=== PATIENT | female | born 1940 | race Caucasian/White ===

== ENCOUNTER 2022-03-16 06:08 | Day surgery (SDC) | payer MEDICARE, SELFPAY ==
[2022-03-16] VITALS (23 sets, daily range): BP systolic 92–138; BP diastolic 53–79; PULSE 59–84; RESP 14–24; TEMP 35.8–37.1; O2SAT 91–100; BMI 23.8
[2022-03-16] MEDS: ACETAMINOPHEN 500 MG TABLET 1000 MG PO ×3 (06:38→21:39)
[2022-03-16] MEDS: OXYCODONE (CR) 10 MG TAB.ER.12H PO (06:38)
[2022-03-16] MEDS: CELECOXIB 200 MG CAPSULE PO ×2 (06:38→21:08)
[2022-03-16] MEDS: LACTATED RINGERS 1000 ML 1,000 ML 100 ML IV ×2 (06:55→09:38)
[2022-03-16] MEDS: SODIUM CHLORIDE 0.9 % (FLUSH) 10 ML SYRINGE IVF (06:56)
--- NOTE | 2022-03-16 07:02 | SUR.PREOP ---
pt has a small open sore on left lateral side of leg by ankle. Oozing. Covered with dressing.
[2022-03-16] MEDS: MIDAZOLAM HCL 1 MG/ML inj IVP (07:16)
[2022-03-16] MEDS: fentaNYL 100 MCG/2 ML inj IVP (07:16)
[2022-03-16] MEDS: CEFAZOLIN 1 GM inj IVP (07:45)
[2022-03-16] MEDS: TRANEXAMIC ACID 100 MG/ML INJ 1000 MG IV (07:50)
--- NOTE | 2022-03-16 08:04 | W.PM.NB ---
Nerve Block Nerve Block Time Seen by Provider: 07:18 Date Seen: 03/16/22 Type of block requested by surgeon for post-operative analgesia: adductor canal Side: right Time out performed: Yes Verification of patient name: Yes Verification of date of : Yes Site marking: site marked Name of person performing procedure: Andrea Continuous monitoring Was continuous monitoring of O2 sat, B/P, quality assurance monitor final, recorded every 15 minutes?: Yes Procedure Checklist: sterile prep, needles and gloves Ultrasound guided. Images saved: Yes Medications given in 5ml increments after negative aspiration: Ropivicaine %: 0.5 mL: 20 Needle gauge: 20 Decadron (mg): 10 Precedex (mcg): 25 Patient tolerated procedure well: Yes Additional comments: Needle noted adjacent to nerve Block Charges Block Charge (with Pro Fee): Femoral Nerve Use of Ultrasound Machine for Block: Yes- US Guidance/pain block
--- NOTE | 2022-03-16 08:05 | W.PM.NB ---
Nerve Block Nerve Block Time Seen by Provider: 07:18 Date Seen: 03/16/22 Type of block requested by surgeon for post-operative analgesia: geniculars Side: right Time out performed: Yes Verification of patient name: Yes Verification of date of : Yes Site marking: site marked Name of person performing procedure: Andrea Continuous monitoring Was continuous monitoring of O2 sat, B/P, dye range tender, recorded every 15 minutes?: Yes Procedure Checklist: sterile prep, needles and gloves Medications given in 5ml increments after negative aspiration: Ropivicaine %: 0.5 mL: 9 Needle gauge: 25 Patient tolerated procedure well: Yes Block Charges Block Charge (with Pro Fee): Genicular Nerve Block Use of Ultrasound Machine for Block: No
--- NOTE | 2022-03-16 09:49 | W.ANESCHARGE ---
Anesthesia Charges Start Date/Time Anesthesia Start Date: 03/16/22 Anesthesia Start Time: 07:39 Stop Date/Time Anesthesia Stop Date: 03/16/22 Anesthesia Stop Time: 09:51 Summary Emergency: No Extremes of Age: Over 69-CPT 67437
--- NOTE | 2022-03-16 09:59 | CRLHL7_ITS ---
For Patients: As a result of the Cures Act, medical imaging exams and procedure reports are released immediately into your electronic medical record. You may view this report before your referring provider. If you have questions, please contact your health care provider. Indication: Post op right TKA Technique: Two views right knee Findings/Impression: Hardware from a right total knee arthroplasty is in satisfactory position. Bone alignment is normal. No sign of acute fracture. Postop changes are within normal limits. Dictated by Mukul Bose MD @ 03/16/2022 11:08:22 AM (Electronically Signed)
--- NOTE | 2022-03-16 10:08 | P.ORPRC_ITS ---
Procedure Note Date of procedure: 03/16/22 Procedure: SURGEON: Elliot Chairez MD MEDICAL ASSISTANT SECRETARY: Arlene Aguayo PA-C PREOPERATIVE DIAGNOSIS: Right knee osteoarthritis POSTOPERATIVE DIAGNOSIS: Right knee osteoarthritis NAME OF OPERATION: Right total knee arthroplasty ANESTHESIA: Spinal ESTIMATED BLOOD LOSS: 0 mL COMPLICATIONS: None SPECIMENS: None DRAINS: None PREOPERATIVE ANTIBIOTICS: Ancef 1 g IMPLANTS: 1. J&J Attune #6 posterior stabilized femur 2. # 5 fixed-bearing tibia 3. # 5 posterior stabilized, 7 mm fixed-bearing polyethylene 4. 38 patella INDICATIONS: The patient is a 81-year-old with a longstanding history of severe, unrelenting right knee pain secondary to end-stage (grade IV) right knee osteoarthritis. Despite appropriate nonoperative management, including activity modification, anti-inflammatories, [id number] pain medication, bracing, physical therapy, and injections they continue to have pain and disability. Operative intervention was offered. The risks, benefits and expected outcomes were discussed in detail. These included but were not limited to: Infection, bleeding, injury to blood vessel or nerve, venous thromboembolism. All questions were answered to their satisfaction. Use of an assistant public defender was necessary throughout the case for patient positioning and safety, soft tissue retraction, and closure. PROCEDURE: Spinal anesthesia was administered. The patient was placed supine on the operating table. The assistant public defender made sure the patient was positioned appropriately. The lower extremity was prepped and draped in the usual sterile fashion. The limb was exsanguinated with the Yash bandage. The pneumatic tourniquet was inflated to 300 mmHg. A standard anterior incision was made with the knee in flexion. Subcutaneous dissection was sharply taken through fascial layer #1. Full-thickness medial and lateral flaps were elevated. The assistant public defender retracted the soft tissues and protected them throughout the case. A standard medial parapatellar approach was made. The patella was everted. The infrapatellar fat pad was preserved. The menisci and cruciate ligaments were sharply d?brided. Marginal osteophytes were d?brided with the rongeur. The drill was used to penetrate the femoral canal. The canal was aspirated and irrigated with pulse lavage. The intramedullary femoral guide was placed for a 5-degree valgus cut, removing 10 mm off the distal femur. The saw was used to make the cut. Whitesides line and the trans epicondylar axis were marked. The femoral sizing guide was pinned onto the distal femur. Three degrees of external rotation nicely parallels the transepicondylar axis. Pins were placed for posterior referencing. The four-in-one cutting guide was pinned onto the distal femur. The anterior, posterior, and chamfer cuts were made. The assistant public defender protected the collateral ligaments. The box cutting guide was pinned. The box cuts were made. The boxed trial was placed and was an excellent fit. Drill holes for the lugs were made. Attention was then turned to the proximal tibia. The extramedullary tibial guide was placed for a neutral varus/valgus cut with 5 degrees of posterior slope, removing 1 mm based off the medial tibial surface. The assistant public defender protected the collateral ligaments and the neurovascular bundle. The saw was used to make the cut. Trial components were placed. The knee was nicely balanced in both flexion and extension. The trial components were removed. The tray was placed in appropriate rotation, parallel to our tibial cutting pins. It was pinned by the assistant public defender and the drill and the punch were used. The tray was removed. The punch was used again. We placed a bone plug in the femoral canal. Attention was then turned to the patella. Circle patellar thickness was 22 mm. The lobster claw resection guide was used with the 9.5 mm alana. The saw was used to make the cut. Drill holes were made by the assistant public defender. The trial was placed and was an excellent fit. Cancellous surfaces were irrigated with pulse lavage and thoroughly dried by the assistant public defender. We cemented the tibial component, then the femoral component. We impacted the 7 mm polyethylene onto the tibial tray. The knee was brought into full extension. We then cemented the patellar component. Excessive cement was removed. The cement was allowed to harden. The knee was taken through a range of motion and was found to be nicely balanced in both flexion and extension. The patella tracks centrally. The assistant public defender did a three minute dilute Betadine solution soak. The assistant public defender irrigated the wound with 3 liters of normal saline via pulse lavage. The assistant public defender reapproximated the extensor mechanism with #1 Vicryl in an interrupted [id number] fashion. The assistant public defender then ran the extensor mechanism with a #1 PDO Stratafix. The assistant public defender closed the subcutaneous tissues with a 3-0 Stratafix and the skin with a running 3-0 Stratafix in a subcuticular fashion. Glue was used to seal the skin. The assistant public defender placed a dry dressing, FABIANA stocking, and Polar Care. Sponge and needle counts were correct x2. The patient tolerated the procedure well. There were no apparent complications. They were carefully transferred to the hospital bed and taken to the postanesthesia care unit in satisfactory condition. PLAN: The patient will be mobilized with physical therapy. Aspirin will be used for DVT prophylaxis. They will be discharged to home once medically appropriate.
--- NOTE | 2022-03-16 10:54 | W.ANESCHARGE ---
Anesthesia Charges Start Date/Time Anesthesia Start Date: 03/16/22 Anesthesia Start Time: 07:39 Stop Date/Time Anesthesia Stop Date: 03/16/22 Anesthesia Stop Time: 09:51 Summary Emergency: No Extremes of Age: Over 69-CPT 51143
[2022-03-16] MEDS: HYDROmorphone 0.5 mg/0.5 ml inj IVP (12:25)
[2022-03-16] MEDS: CEFAZOLIN 1 GM in 0.9 % SODIUM CHLORIDE Mini-bag 100 ML IVPB ×2 (12:45→21:09)
[2022-03-16] MEDS: OXYCODONE 5 MG TABLET PO ×3 (12:46→23:37)
--- NOTE | 2022-03-16 14:34 | PC.NURSE ---
PATIENT TO FLOOR AROUND 1030 FROM PACU, ALERT AND ORIENTED, ABLE TO MOVE LEGS, INITIALLY DECLINING PAIN IN RIGHT KNEE FOR WHICH LATER DID REPORT PAIN 3-5/10 BEING MANAGED WITH PRN OXYCODONE, UP TO BATHROOM WITH ASSIST OF 1 WALKER AND BELT, ABLE TO VOID, TOLERATING REGULAR DIET NO NAUSEA OR VOMITING, DRESSING TO RIGHT KNEE CDI, CYRO CUFF TO SITE.
[2022-03-16] MEDS: ONDANSETRON 2 MG/ML inj 4 MG IVP (17:34)
--- NOTE | 2022-03-16 20:57 | P.IMCN_ITS ---
Date of Consult Patient: Other Consult date: 03/16/22 Requesting Physician: Orthopedics Primary Care Provider: Bi Cao MD Consult Narrative Reason for consult: PMR Narrative: Sheila Garza is a 81 year old female who underwent an elective RTKA today. Currently takes methotrexate/leucovorin as well as low dose prednisone for PMR. She gets sores on her legs for which she wears wool compression stockings and uses medihoney. Review of Systems Status of ROS: Reports: 10 or more systems reviewed and unremarkable except as noted in History and below PFSH PFS Medical History (Updated 03/16/22 @ 21:19 by Margy Chavez MD) Allergic vasculitis Anemia Atony of bladder Atrial fibrillation Diffuse cystic mastopathy Fracture, sternum closed Hearing loss History of atrial fibrillation Humerus fracture Inflammatory polyarthritis Insomnia Liver cyst Neuropathy of foot Osteoporosis Polymyalgia rheumatica Pyelonephritis, unspecified Sicca syndrome Subdural hematoma Ulcers of both lower legs Surgical History (Updated 03/16/22 @ 21:19 by Margy Chavez MD) H/O bladder repair surgery (~1991) H/O hand surgery H/O vein stripping History of blanca hole surgery History of colonoscopy History of total left knee replacement (09/26/17) History of vaginal hysterectomy (~1983) S/P ORIF (open reduction internal fixation) fracture Family History (Updated 03/16/22 @ 16:25 by Margy Chavez MD) Brother Thyroid cancer Diabetes Father Lung cancer CHF (congestive heart failure) Coronary artery disease Mother Breast cancer Arthritis Daughter Cervical cancer Maternal Grandfather Diabetes Social History (Updated 03/16/22 @ 21:08 by Margy Chavez MD) Narrative: Lives with . Smoking Status: Former smoker What tobacco products do you use: cigarettes Smoking quit date/years: >15 years ago Do you use any of these nicotine containing products: None How often do you have a drink containing alcohol: never How often do you have six or more drinks on one occasion: Never AUDIT-C Alcohol total score: 0 Non-prescribed substance use: denies use Caffeine: Yes (coffee, 5-6 cups/day) Meds Home Medications and Allergies Home Medications Medication Instructions Recorded Confirmed Type alendronate 70 mg tablet 70 mg PO .weekly 03/15/22 03/16/22 History calcium citrate-vitamin D3 500 2 tab PO DAILY 03/15/22 03/16/22 History mg-200 unit chewable tablet diltiazem HCl 120 mg 120 mg PO DAILY 03/15/22 03/16/22 History capsule,extended release 24 hr, controlled gabapentin 300 mg capsule 300 mg PO HS 03/15/22 03/16/22 History leucovorin calcium 5 mg tablet 5 mg PO .weekly 03/15/22 03/16/22 History methotrexate sodium 2.5 mg tablet 15 mg PO .weekly 03/15/22 03/16/22 History multivitamin 1 tab PO DAILY 03/15/22 03/16/22 History omega-3 fatty acids-fish oil 300 2 cap PO DAILY 03/15/22 03/16/22 History mg-1,000 mg capsule prednisone 2.5 mg tablet 2.5 mg PO DAILY 03/15/22 03/16/22 History Allergies Allergy/AdvReac Type Severity Reaction Status Date / Time No Known Drug Allergies Allergy Unverified 03/15/22 10:26 Exam Narrative: Exam Narrative: General: No acute distress. Awake alert oriented x3. HEENT: Normocephalic atraumatic, pupils equally round and reactive to light and accommodation. Oropharynx clear. Mucous membranes are moist. No cervical lymphadenopathy, thyromegaly or carotid bruits. No JVD. Cardiovascular: Regular rate and rhythm. No murmurs, gallops, or rubs. Chest: No increased work of breathing. Clear to auscultation bilaterally. No crackles or wheezes. Abdomen: Bowel sounds present. Soft, nondistended, nontender. No hepatosplenomegaly or masses. Extremities: Right knee bandage is clean, dry, and intact. No edema, no cyanosis or clubbing. Wearing compression stockings. Skin: Thin fragile skin, especially on legs. Pretibial chronic looking rash consistent with chronic venous stasis. No jaundice, no pallor. Const: Vital Signs, click to edit/add: Vital Signs - 24 hr 03/16/22 06:57 03/16/22 07:18 03/16/22 09:48 Temperature 98.8 F 96.9 F L Pulse Rate 73 73 78 Pulse Rate [Right Pulse Oximeter] Respiratory Rate 16 16 24 Blood Pressure 126/70 126/68 96/58 L Blood Pressure [Le ft Arm] Pulse Oximetry 99 97 97 Oxygen Delivery Me thod Room Air Nasal Cannula Oxygen Flow Rate 2 03/16/22 09:50 03/16/22 10:00 03/16/22 09:55 Temperature 96.9 F L 96.9 F L 96.9 F L Pulse Rate 73 71 73 Pulse Rate [Right Pulse Oximeter] Respiratory Rate 16 14 16 Blood Pressure 92/53 L 110/63 101/59 L Blood Pressure [Le ft Arm] Pulse Oximetry 98 98 98 Oxygen Delivery Me thod OxyMask OxyMask Oxygen Flow Rate 6 6 03/16/22 10:05 03/16/22 10:10 03/16/22 10:15 Temperature 96.9 F L 96.9 F L 96.7 F L Pulse Rate 64 72 81 Pulse Rate [Right Pulse Oximeter] Respiratory Rate 24 14 17 Blood Pressure 108/59 L 118/66 109/73 Blood Pressure [Le ft Arm] Pulse Oximetry 100 93 93 Oxygen Delivery Me thod OxyMask Room Air Room Air Oxygen Flow Rate 6 03/16/22 10:30 03/16/22 11:00 03/16/22 11:15 Temperature 96.4 F L Pulse Rate 69 Pulse Rate [Right Pulse Oximeter] 59 L 71 Respiratory Rate 16 14 16 Blood Pressure Blood Pressure [Le ft Arm] 123/76 114/64 124/68 Pulse Oximetry 94 98 Oxygen Delivery Me thod Room Air Room Air Room Air Oxygen Flow Rate 03/16/22 11:30 03/16/22 11:45 03/16/22 12:00 Temperature 97.6 F Pulse Rate Pulse Rate [Right Pulse Oximeter] 65 74 84 Respiratory Rate 16 16 16 Blood Pressure Blood Pressure [Le ft Arm] 114/69 129/67 128/79 Pulse Oximetry 96 95 96 Oxygen Delivery Me thod Room Air Room Air Room Air Oxygen Flow Rate 03/16/22 12:30 03/16/22 13:00 03/16/22 14:00 Temperature Pulse Rate Pulse Rate [Right Pulse Oximeter] 79 78 65 Respiratory Rate 16 16 16 Blood Pressure Blood Pressure [Le ft Arm] 137/77 Pulse Oximetry 91 95 92 Oxygen Delivery Me thod Room Air Room Air Room Air Oxygen Flow Rate 03/16/22 15:21 03/16/22 15:00 03/16/22 15:00 Temperature 98 F Pulse Rate Pulse Rate [Right Pulse Oximeter] 79 73 Respiratory Rate 18 16 Blood Pressure Blood Pressure [Le ft Arm] 116/66 Pulse Oximetry 96 92 Oxygen Delivery Me thod Oxygen Flow Rate Documenting provider has reviewed patient's vital signs: yes Labs Labs: Ordering Physician: Elliot Chairez M.D. Date of Service: 03/16/22 Procedure(s): XR knee RT 2V Accession Number(s): [id number] cc: Elliot Chairez M.D.; Bi Cao MD~ For Patients: As a result of the Cures Act, medical imaging exams and procedure reports are released immediately into your electronic medical record. You may view this report before your referring provider. If you have questions, please contact your health care provider. Indication: Post op right TKA Technique: Two views right knee Findings/Impression: Hardware from a right total knee arthroplasty is in satisfactory position. Bone alignment is normal. No sign of acute fracture. Postop changes are within normal limits. Dictated by Mukul Bose MD @ 03/16/2022 11:08:22 AM (Electronically Signed) Assessment and Plan Assessment and plan (1) S/P total knee arthroplasty: Problem comment: 03/16/2022 right Status: Acute (2) Polymyalgia rheumatica: Problem comment: intermittent flare-ups 10/16/08: new diagnosis, Rheumatology work up negative. 03/16/2022 On prednisone 2.5 every other day, methotrexate and leukovorin. Status: Chronic (3) Ulcers of both lower legs: Problem comment: [facility] Status: Chronic
[2022-03-16] MEDS: SENNOSIDES 1 TAB TABLET 2 TAB PO (21:08)
[2022-03-16] MEDS: ASPIRIN 81 MG TABLET EC PO (21:08)
--- NOTE | 2022-03-16 22:57 | PC.NURSE ---
End of shift note [id number]: Pt. alert and oriented x4. pleasant and cooperative. tolerating reg diet. Rated pain 4/10 PRN oxy administered. Pt. stated she started to feel nauseous after walking back to bed from BR, PRN zofran administered w/relief. Pt's IV in right wrist patent and SL, dressing changed and reinforced. Dressing to right knee C/D/I. cryocuff to site, Bilateral plexi pulses and teds in use. Pt. states she feels better as a SBA to ambulate in room and to BR.
[2022-03-17] MEDS: OXYCODONE 5 MG TABLET PO ×2 (02:51→09:33)
[2022-03-17 03:00] VITALS: BP 126/64; PULSE 66; RESP 18; TEMP 36.8; O2SAT 93
[2022-03-17] MEDS: CEFAZOLIN 1 GM in 0.9 % SODIUM CHLORIDE Mini-bag 100 ML IVPB (04:05)
[2022-03-17] MEDS: ACETAMINOPHEN 500 MG TABLET 1000 MG PO ×2 (04:05→09:33)
[2022-03-17] MEDS: ONDANSETRON 2 MG/ML inj 4 MG IVP (05:10)
[2022-03-17] MEDS: dilTIAZem 120 MG CAP.ER.24H PO (07:03)
[2022-03-17 07:26] LABS: Basophils Absolute Auto 0.02 K/uL (0.00-0.30); Basophils Percent Auto 0.2 % (0.0-3.0); Eosinophils Absolute Auto 0.01 K/uL (0.00-0.50); Eosinophils Percent Auto 0.1 % (0.0-7.0); Hematocrit 33.6 % (33.0-51.0); Hemoglobin* 10.9 gm/dL (12.0-16.0); Immature Granulocytes Abs Auto 0.01 K/uL (0.00-0.30); Immature Granulocytes Pct Auto 0.1 %; Mean Corpuscular HGB Conc 32 gm/dL (32-36); Mean Corpuscular Hemoglobin 31 pg (26-34); Mean Corpuscular Volume 94 fL (80-100); Monocytes Percent Auto 11.5 % (0.0-11.0); Neutrophils Percent Auto 77.1 % (42.0-72.0); Platelet Count* 220 K/uL (140-440); Red Blood Count 3.57 m/uL (4.00-5.20); White Blood Count* 8.61 K/uL (4.50-11.00)
[2022-03-17 07:34] LABS: Slide Review Reflex No
[2022-03-17 07:41] LABS: Potassium* 4.2 mmol/L (3.6-5.1); Sodium* 135 mmol/L (135-149)
[2022-03-17 07:44] LABS: Blood Urea Nitrogen* 16 mg/dL (7-30); Creatinine* 0.7 mg/dL (0.5-1.5); Est. Creatinine Clearance* 37.45; Estimated Glomerular Filt Rate 86 ml/min; INR 1.09 (0.91-1.10); Prothrombin Time 14.7 Seconds
[2022-03-17 07:58] VITALS: BP 122/52; PULSE 82; RESP 16; TEMP 36.8; O2SAT 96
--- NOTE | 2022-03-17 08:38 | P.ORPN_ITS ---
Subjective Subjective Time Seen by Provider: 07:00 Date Seen: 03/17/22 Principal diagnosis: Status post right total knee arthroplasty Interval history: Rita is comfortable this morning. She plans to discharge to home. Ortho Exam Narrative Exam Narrative: Alert and oriented x3. Patient is in no acute distress. Converses without labored breathing. Hearing is grossly intact. Delete that Examination of the right lower extremity shows the dressing is intact. Mild soft tissue edema. Mild effusion. CMS is intact right lower extremity. Bilateral calves are soft and nontender. No erythema. No sign of infection. Const Vital Signs, click to edit/add: Vital Signs - 24 hr 03/16/22 09:48 03/16/22 09:50 03/16/22 10:00 Temperature 96.9 F L 96.9 F L 96.9 F L Pulse Rate 78 73 71 Pulse Rate [Right Pulse Oximeter] Respiratory Rate 24 16 14 Blood Pressure 96/58 L 92/53 L 110/63 Blood Pressure [Left Arm] Pulse Oximetry 97 98 98 Oxygen Delivery Method OxyMask Oxygen Flow Rate 6 03/16/22 09:55 03/16/22 10:05 03/16/22 10:10 Temperature 96.9 F L 96.9 F L 96.9 F L Pulse Rate 73 64 72 Pulse Rate [Right Pulse Oximeter] Respiratory Rate 16 24 14 Blood Pressure 101/59 L 108/59 L 118/66 Blood Pressure [Left Arm] Pulse Oximetry 98 100 93 Oxygen Delivery Method OxyMask OxyMask Room Air Oxygen Flow Rate 6 6 03/16/22 10:15 03/16/22 10:30 03/16/22 11:00 Temperature 96.7 F L 96.4 F L Pulse Rate 81 69 Pulse Rate [Right Pulse Oximeter] 59 L Respiratory Rate 17 16 14 Blood Pressure 109/73 Blood Pressure [Left Arm] 123/76 114/64 Pulse Oximetry 93 94 Oxygen Delivery Method Room Air Room Air Room Air Oxygen Flow Rate 03/16/22 11:15 03/16/22 11:30 03/16/22 11:45 Temperature 97.6 F Pulse Rate Pulse Rate [Right Pulse Oximeter] 71 65 74 Respiratory Rate 16 16 16 Blood Pressure Blood Pressure [Left Arm] 124/68 114/69 129/67 Pulse Oximetry 98 96 95 Oxygen Delivery Method Room Air Room Air Room Air Oxygen Flow Rate 03/16/22 12:00 03/16/22 12:30 03/16/22 13:00 Temperature Pulse Rate Pulse Rate [Right Pulse Oximeter] 84 79 78 Respiratory Rate 16 16 16 Blood Pressure Blood Pressure [Left Arm] 128/79 137/77 Pulse Oximetry 96 91 95 Oxygen Delivery Method Room Air Room Air Room Air Oxygen Flow Rate 03/16/22 14:00 03/16/22 15:21 03/16/22 15:00 Temperature 98 F Pulse Rate Pulse Rate [Right Pulse Oximeter] 65 79 Respiratory Rate 16 18 Blood Pressure Blood Pressure [Left Arm] 116/66 Pulse Oximetry 92 96 92 Oxygen Delivery Method Room Air Oxygen Flow Rate 03/16/22 15:00 03/16/22 19:00 03/16/22 16:30 Temperature 98.0 F 98.2 F Pulse Rate Pulse Rate [Right Pulse Oximeter] 73 71 73 Respiratory Rate 16 18 18 Blood Pressure Blood Pressure [Left Arm] 117/76 138/72 Pulse Oximetry 93 92 Oxygen Delivery Method Room Air Room Air Oxygen Flow Rate 03/16/22 23:00 03/16/22 23:00 03/17/22 03:00 Temperature 98.3 F 98.2 F Pulse Rate Pulse Rate [Right Pulse Oximeter] 70 66 Respiratory Rate 18 18 Blood Pressure Blood Pressure [Left Arm] 113/55 L 126/64 Pulse Oximetry 95 95 93 Oxygen Delivery Method Room Air Room Air Oxygen Flow Rate 0 0 03/17/22 07:58 Temperature Pulse Rate Pulse Rate [Right Pulse Oximeter] Respiratory Rate Blood Pressure Blood Pressure [Left Arm] Pulse Oximetry 96 Oxygen Delivery Method Oxygen Flow Rate Assessment and Plan Assessment and plan (1) S/P total knee arthroplasty: Problem details: 03/16/2022 right Status: Acute Assessment and Plan: Plan for discharge is today to home if they meet discharge criteria. DVT prophylaxis includes aspirin 81 mg twice daily x1 month, Ishmael stockings x1 month may remove for 1 hr per day, frequent ambulation Remove dressing in 1 week. Observe wound and phone Orthopedics with any q uestions or concerns Return to clinic in 1 week for a wound check Return to clinic in [address] Chairez Minimize narcotic use. Wean off and discontinue soon as possible. Activities as tolerated. No strenuous activity. Outpatient physical therapy as scheduled. Ice and elevate the operative extremity. No restriction on ice. (2) Polymyalgia rheumatica: Problem details: intermittent flare-ups 10/16/08: new diagnosis, Rheumatology work up negative. 03/16/2022 On prednisone 2.5 every other day, methotrexate and leukovorin. Status: Chronic (3) Ulcers of both lower legs: Problem details: [place] [facility] Status: Chronic
[2022-03-17] MEDS: SENNOSIDES 1 TAB TABLET 2 TAB PO (09:32)
[2022-03-17] MEDS: CELECOXIB 200 MG CAPSULE PO (09:33)
[2022-03-17] MEDS: ASPIRIN 81 MG TABLET EC PO (09:34)
== END 2022-03-17 11:43 | disposition home or self-care (01) ==
LOC: OR 06:10 → MEDSURG 06:13
PROVIDERS: PCP Family Medicine; Visit Provider Orthopaedic Surgery
PROC: (CPT 27447; principal; 2022-03-16 07:45)
DX: M17.11 Unilateral primary osteoarthritis, right knee (principal); M25.561 Pain in right knee; M35.3 Polymyalgia rheumatica; L97.919 Non-pressure chronic ulcer of unspecified part of right lower leg with unspecified severity; L97.929 Non-pressure chronic ulcer of unspecified part of left lower leg with unspecified severity; I48.91 Unspecified atrial fibrillation; G57.90 Unspecified mononeuropathy of unspecified lower limb; Z79.631 Long term (current) use of antimetabolite agent; Z79.52 Long term (current) use of systemic steroids
CPT/HCPCS: 27447; 01402; 36415; 64447; 64454; 73560; 76942; 82565; 84132; 84295; 84520; 85025; 85610; 97110; 97116; 97161; 97165; 97535; 99100; A9270; C1776; J0690; J1100; J1170; J2250; J2405; J2704; J2795; J3010; J7120

== ENCOUNTER 2022-03-31 09:00 | Outpatient (RCR) | payer MEDICARE, SELFPAY ==
--- NOTE | 2022-03-08 08:21 | PT.OPEX ---
PT [place] Outpatient Eval PT [facility] Outpatient Eval Start: 03/08/22 07:08 Freq: Status: Active Protocol: Document 03/08/22 07:17 JILLIAN (Rec: 03/08/22 08:14 CLPoli [id number]) E-signed By Hannah Ba PT Physical Therapy Outpatient Evaluation Insurance Information Recert Due Date 05/31/22 Insurance Name Medicare B Medical Diagnosis Rt TKA Pre-Op visit Treating Diagnosis Pre-Op education Pain, edema, lacking ROM, lacking gait skills Fall Risk Referring MD Dr Monica Chairez Subjective Subjective Sheila reports having pain intermittently for the past 1- 2 years. She got a hinged knee brace last year, and that has helped a great deal. If she is careful and doesn't move fast, she is only minimally limitated. Without the brace she cannot do even 1/4 as much . If she walks for too long ( 10 min on the treadmill) it hurts. She doesn't really have a lot of swelling. SHe has been having patellar dislocations recently (at night without the brace), and that made up my mind to have the surgery. She takes Tylenol occasionally. She does have other pain medications for polymyalcia. She lives in her own house, stairs to basement (12) with railing on Rt side descending. 2 steps into the house, no railing but posts to hold. ( one step to deck, 1 step into house). Bed room and bathroom are all on the main floor. She has help at home (her ). PT Burt in clinic. I have a high stool. Shower is a slight 3 step into, and we do have a shower chair. Date of Last Physician Visit 12/03/21 Date of Surgery (If applicable) 03/16/22 Current Work Status Retired Preferred Name Rita Precautions Treatment Precautions/Contraindications Atrial Fib Bladder Repair Surgery Lt TKA 09/26/17 Hysterectomy Weight Bearing Status Full Weight Bearing Therapy Limitations/Systems Review Vision Objective Range of Motion Involved Rt knee 2-130 Lt knee 1-130 Strength 4/5 Rt knee Lt 5/5 Swelling Rt 41.4 cm (Lt 39.2) Palpation No one site more involved or painfull noted Balance & Gait Slightly widened Denzel, slightly flat footed heel strike Assessment Assessment/Impression 81 yo with DX of Rt TKA, scheduled for next week . She is seen this date for pre-op education for this pre- scheduled surgery. She presents with slightly flattened Lumbar Spine, slightly reduced heel strike and toe push off. SLS 5 seconds. She can dbl leg squat to a depth of 90 deg prior to reduced WB into involved Rt leg. Only very slight edema, Rt leg measures 42.4 cm vs Lt 39.5 cm. AROM is good, 2-130 deg (Lt 1-131). She can sit to stand without the use of UE on chair arm with symmetric LE WB. Good bed mobility and independent transfers. She has had her Lt TKR done in August of 2017, feels she is ready for this as well. Her is at home to care for her, has all rooms required on main floor so she only needs to navigate 2 steps to get into house. She has shower chair, WW and cane already. Plan of Care Rehabilitation Potential Good Physical Therapy Goals During this one PT session, she was educated in: 1. HEP to be completed 3X/day post op 2. Fall Prevention in the home HO 3. TKR Recovery and home cares : assistive devices, home modifications, lifestyle changes, Physical activity. 4. Education in post op recovery: pain control, wound cares 5. Educated in proper use of WW and A/D stairs. Coordination/Communication With Referral Source Treatment Plan/Direct Interventions Gait Training,Neuromuscular Re -ed,Self-Care/Home Management, Therapeutic Exercises Frequency/Duration To be seen for this one visit Pre-Op Rt TKR. New goals will be established at the Post-Op PT session approximately 3 days after surgery, out- patient basis. Patient Will Be Discharged From Therapy Completion of LTG(s),Skills Plateau,Independent w/HEP, Independently Progressing Evaluation Billing Untimed Code Treatment Minutes 25 Complexity Moderate Certification Information Initial Certification Date 03/08/22 Ending Certification Date 05/31/22 Provider Signature Shows Agreement With POC & Medical Necessity Physician Signature & Date Requested Please Sign/Date Here Physician Comment/Change : Physician NPI Number #
== END 2022-05-18 13:45 | disposition home or self-care (01) ==
PROVIDERS: PCP Family Medicine; Visit Provider Orthopaedic Surgery
DX: M17.11 Unilateral primary osteoarthritis, right knee (principal); Z51.89 Encounter for other specified aftercare
CPT/HCPCS: 97110; 97116; 97140; 97162; 97164; 97535

== ENCOUNTER 2022-11-30 07:48 | Outpatient (CLI) | payer MEDICARE, SELFPAY | END 2022-11-30 07:49 | disposition home or self-care (01) | LOC: WOUND 07:49 | PROVIDERS: PCP Family Medicine; Visit Provider Nurse Practitioner Family | DX: I87.2 Venous insufficiency (chronic) (peripheral) (principal); L97.512 Non-pressure chronic ulcer of other part of right foot with fat layer exposed; I83.022 Varicose veins of left lower extremity with ulcer of calf; L97.228 Non-pressure chronic ulcer of left calf with other specified severity; G99.0 Autonomic neuropathy in diseases classified elsewhere; Z79.52 Long term (current) use of systemic steroids | CPT/HCPCS: 97602; 99215 ==

== ENCOUNTER 2022-12-07 14:05 | Outpatient (CLI) | payer MEDICARE, SELFPAY | END 2022-12-07 14:06 | disposition home or self-care (01) | LOC: WOUND 14:05 | PROVIDERS: PCP Family Medicine; Visit Provider Nurse Practitioner Family | DX: I87.2 Venous insufficiency (chronic) (peripheral) (principal); L97.512 Non-pressure chronic ulcer of other part of right foot with fat layer exposed; I83.022 Varicose veins of left lower extremity with ulcer of calf; L97.222 Non-pressure chronic ulcer of left calf with fat layer exposed; G99.0 Autonomic neuropathy in diseases classified elsewhere; Z79.52 Long term (current) use of systemic steroids | CPT/HCPCS: 97602; 99215 ==

== ENCOUNTER 2022-12-17 13:16 | Outpatient (CLI) | payer MEDICARE, SELFPAY | END 2022-12-17 13:17 | disposition home or self-care (01) | LOC: WOUND 13:16 | PROVIDERS: PCP Family Medicine; Visit Provider Nurse Practitioner Family | DX: I83.022 Varicose veins of left lower extremity with ulcer of calf (principal); L97.222 Non-pressure chronic ulcer of left calf with fat layer exposed; I87.2 Venous insufficiency (chronic) (peripheral); L97.512 Non-pressure chronic ulcer of other part of right foot with fat layer exposed | CPT/HCPCS: 97597 ==

== ENCOUNTER 2022-12-21 14:20 | Outpatient (CLI) | payer MEDICARE, SELFPAY | END 2022-12-21 14:21 | disposition home or self-care (01) | LOC: WOUND 14:20 | PROVIDERS: PCP Family Medicine; Visit Provider Nurse Practitioner Family | DX: I83.022 Varicose veins of left lower extremity with ulcer of calf (principal); L97.222 Non-pressure chronic ulcer of left calf with fat layer exposed; I87.2 Venous insufficiency (chronic) (peripheral); L97.512 Non-pressure chronic ulcer of other part of right foot with fat layer exposed | CPT/HCPCS: 97597 ==

== ENCOUNTER 2022-12-27 14:38 | Outpatient (CLI) | payer MEDICARE, SELFPAY ==
--- NOTE | 2022-12-27 15:00 | CRLHL7_ITS ---
For Patients: As a result of the Century Cures Act, medical imaging exams and procedure reports are released immediately into your electronic medical record. You may view this report before your referring provider. If you have questions, please contact your health care provider. Indication: KNOWN VASCULAR INSUFFICIENCY, NON-HEALING ULCERS Comparison: None Technique: Routine duplex arterial examination of bilateral lower extremities including 2D and spectral analysis, and color Doppler imaging was performed. Findings: In the right lower extremity there are multiphasic waveforms in the common femoral artery, profunda femoral artery, superficial femoral artery, and popliteal artery. Similarly, at the ankle, there are multiphasic waveforms in the posterior tibial artery, and dorsalis pedis arteries. In the left lower extremity there are multiphasic waveforms within the common femoral artery, profunda femoral artery, superficial femoral artery, and popliteal artery. Similarly, at the ankle, there are multiphasic waveforms in the posterior tibial artery, and dorsalis pedis arteries. Minimal atherosclerotic changes are present. Impression: Multiphasic waveforms of bilateral lower extremities. No evidence of flow-limiting stenosis. Dictated by Mukul Bose MD @ 12/29/2022 10:06:12 AM (Electronically Signed)
== END 2022-12-27 14:39 | disposition home or self-care (01) ==
PROVIDERS: PCP Family Medicine; Visit Provider Nurse Practitioner Family
DX: I87.2 Venous insufficiency (chronic) (peripheral) (principal); I83.022 Varicose veins of left lower extremity with ulcer of calf; L97.512 Non-pressure chronic ulcer of other part of right foot with fat layer exposed; I99.8 Other disorder of circulatory system
CPT/HCPCS: 93926

== ENCOUNTER 2022-12-28 15:23 | Outpatient (CLI) | payer MEDICARE, SELFPAY | END 2022-12-28 15:24 | disposition home or self-care (01) | LOC: WOUND 15:24 | PROVIDERS: PCP Family Medicine; Visit Provider Nurse Practitioner Family | DX: I83.015 Varicose veins of right lower extremity with ulcer other part of foot (principal); L97.512 Non-pressure chronic ulcer of other part of right foot with fat layer exposed; I83.022 Varicose veins of left lower extremity with ulcer of calf; L97.222 Non-pressure chronic ulcer of left calf with fat layer exposed; Z79.52 Long term (current) use of systemic steroids | CPT/HCPCS: 97602; 99214 ==

== ENCOUNTER 2023-01-11 15:18 | Outpatient (CLI) | payer MEDICARE, SELFPAY | END 2023-01-11 15:19 | disposition home or self-care (01) | LOC: WOUND 01-18 11:56 | PROVIDERS: PCP Family Medicine; Visit Provider Nurse Practitioner Family | DX: I83.015 Varicose veins of right lower extremity with ulcer other part of foot (principal); L97.512 Non-pressure chronic ulcer of other part of right foot with fat layer exposed; I83.022 Varicose veins of left lower extremity with ulcer of calf; L97.222 Non-pressure chronic ulcer of left calf with fat layer exposed; I87.2 Venous insufficiency (chronic) (peripheral); Z79.52 Long term (current) use of systemic steroids | CPT/HCPCS: 97597; 97602 ==

== ENCOUNTER 2023-01-25 15:17 | Outpatient (CLI) | payer MEDICARE, SELFPAY | END 2023-01-25 15:18 | disposition home or self-care (01) | LOC: WOUND 15:17 | PROVIDERS: PCP Family Medicine; Visit Provider Nurse Practitioner Family | DX: I83.022 Varicose veins of left lower extremity with ulcer of calf (principal); L97.228 Non-pressure chronic ulcer of left calf with other specified severity; I83.015 Varicose veins of right lower extremity with ulcer other part of foot; L97.512 Non-pressure chronic ulcer of other part of right foot with fat layer exposed; Z79.52 Long term (current) use of systemic steroids | CPT/HCPCS: 97597; 97602 ==

== ENCOUNTER 2023-02-15 15:13 | Outpatient (CLI) | payer MEDICARE, SELFPAY | END 2023-02-15 15:14 | disposition home or self-care (01) | LOC: WOUND 15:13 | PROVIDERS: PCP Family Medicine; Visit Provider Nurse Practitioner Family | DX: I87.2 Venous insufficiency (chronic) (peripheral) (principal); L97.512 Non-pressure chronic ulcer of other part of right foot with fat layer exposed; I83.022 Varicose veins of left lower extremity with ulcer of calf; L97.228 Non-pressure chronic ulcer of left calf with other specified severity | CPT/HCPCS: 97602; 99214 ==

== ENCOUNTER 2023-03-01 15:17 | Outpatient (CLI) | payer MEDICARE, SELFPAY | END 2023-03-01 15:18 | disposition home or self-care (01) | PROVIDERS: PCP Internal Medicine; Visit Provider Family Medicine | DX: I83.022 Varicose veins of left lower extremity with ulcer of calf (principal); L97.228 Non-pressure chronic ulcer of left calf with other specified severity; I83.025 Varicose veins of left lower extremity with ulcer other part of foot; L97.528 Non-pressure chronic ulcer of other part of left foot with other specified severity; G99.0 Autonomic neuropathy in diseases classified elsewhere | CPT/HCPCS: 11042 ==

== ENCOUNTER 2023-03-29 12:42 | Outpatient (CLI) | payer MEDICARE, SELFPAY | END 2023-03-29 12:43 | disposition home or self-care (01) | LOC: WOUND 12:42 | PROVIDERS: PCP Family Medicine; Visit Provider Nurse Practitioner Family | DX: I83.022 Varicose veins of left lower extremity with ulcer of calf (principal); L97.228 Non-pressure chronic ulcer of left calf with other specified severity; I83.025 Varicose veins of left lower extremity with ulcer other part of foot; L97.528 Non-pressure chronic ulcer of other part of left foot with other specified severity | CPT/HCPCS: 97597; 97602 ==

== ENCOUNTER 2023-04-12 15:34 | Outpatient (CLI) | payer MEDICARE, SELFPAY | END 2023-04-12 15:35 | disposition home or self-care (01) | LOC: WOUND 15:35 | PROVIDERS: PCP Family Medicine; Visit Provider Family Medicine | DX: L95.0 Livedoid vasculitis (principal); I83.022 Varicose veins of left lower extremity with ulcer of calf; L97.228 Non-pressure chronic ulcer of left calf with other specified severity; I83.025 Varicose veins of left lower extremity with ulcer other part of foot; L97.522 Non-pressure chronic ulcer of other part of left foot with fat layer exposed | CPT/HCPCS: 11042 ==

== ENCOUNTER 2023-04-26 15:16 | Outpatient (CLI) | payer MEDICARE, SELFPAY | END 2023-04-26 15:17 | disposition home or self-care (01) | LOC: WOUND 15:16 | PROVIDERS: PCP Family Medicine; Visit Provider Nurse Practitioner Family | DX: L95.0 Livedoid vasculitis (principal); I87.2 Venous insufficiency (chronic) (peripheral); L97.522 Non-pressure chronic ulcer of other part of left foot with fat layer exposed | CPT/HCPCS: 97597 ==

== ENCOUNTER 2023-05-10 15:25 | Outpatient (CLI) | payer MEDICARE, SELFPAY | END 2023-05-10 15:26 | disposition home or self-care (01) | LOC: WOUND 15:25 | PROVIDERS: PCP Family Medicine; Visit Provider Nurse Practitioner Family | DX: L95.0 Livedoid vasculitis (principal); L97.522 Non-pressure chronic ulcer of other part of left foot with fat layer exposed; G99.0 Autonomic neuropathy in diseases classified elsewhere | CPT/HCPCS: 97597 ==

== ENCOUNTER 2023-05-24 15:28 | Outpatient (CLI) | payer MEDICARE, SELFPAY | END 2023-05-24 15:29 | disposition home or self-care (01) | LOC: WOUND 15:29 | PROVIDERS: PCP Family Medicine; Visit Provider Family Medicine | DX: L95.0 Livedoid vasculitis (principal); L97.522 Non-pressure chronic ulcer of other part of left foot with fat layer exposed; G99.0 Autonomic neuropathy in diseases classified elsewhere | CPT/HCPCS: 11042 ==

== ENCOUNTER 2023-06-14 08:00 | Outpatient (CLI) | payer MEDICARE, SELFPAY | END 2023-06-14 08:01 | disposition home or self-care (01) | LOC: WOUND 08:00 | PROVIDERS: PCP Family Medicine; Visit Provider Physician Assistant | DX: I87.2 Venous insufficiency (chronic) (peripheral) (principal); G99.0 Autonomic neuropathy in diseases classified elsewhere; L97.528 Non-pressure chronic ulcer of other part of left foot with other specified severity | CPT/HCPCS: G0463 ==

== ENCOUNTER 2023-07-12 12:47 | Outpatient (CLI) | payer MEDICARE, SELFPAY | END 2023-07-12 12:48 | disposition home or self-care (01) | LOC: WOUND 12:47 | PROVIDERS: PCP Family Medicine; Visit Provider Physician Assistant | DX: I87.2 Venous insufficiency (chronic) (peripheral) (principal); G99.0 Autonomic neuropathy in diseases classified elsewhere; L97.822 Non-pressure chronic ulcer of other part of left lower leg with fat layer exposed | CPT/HCPCS: 97597 ==

== ENCOUNTER 2023-07-26 14:50 | Outpatient (CLI) | payer MEDICARE, SELFPAY | END 2023-07-26 14:51 | disposition home or self-care (01) | LOC: WOUND 14:50 | PROVIDERS: PCP Family Medicine; Visit Provider Nurse Practitioner Family | DX: I87.2 Venous insufficiency (chronic) (peripheral) (principal); L97.822 Non-pressure chronic ulcer of other part of left lower leg with fat layer exposed; G99.0 Autonomic neuropathy in diseases classified elsewhere; L97.522 Non-pressure chronic ulcer of other part of left foot with fat layer exposed | CPT/HCPCS: 97597; 97602 ==

== ENCOUNTER 2023-08-23 14:51 | Outpatient (CLI) | payer MEDICARE, SELFPAY | END 2023-08-23 14:52 | disposition home or self-care (01) | LOC: WOUND 14:51 | PROVIDERS: PCP Family Medicine; Visit Provider Nurse Practitioner Family | DX: I87.2 Venous insufficiency (chronic) (peripheral) (principal); G99.0 Autonomic neuropathy in diseases classified elsewhere; L97.828 Non-pressure chronic ulcer of other part of left lower leg with other specified severity | CPT/HCPCS: 97597 ==